=== PATIENT | male | born 1985 | race Caucasian/White ===

== ENCOUNTER 2021-01-23 08:54 | Emergency (ER) | payer BC ==
[2021-01-23] MEDS ORDERED: Dexamethasone 10 MG/ML SDV IVPUSH ONE (09:35)
[2021-01-23] MEDS ORDERED: Benzocaine 20% Topical Spray UD MUCMEM ONE ×3 (09:36→10:35)
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
[2021-01-23] MEDS ORDERED: Clindamycin Phosphate in D5W 600 MG in Premix Bag 1 BAG IV SCH ×2 (10:00)
[2021-01-23 10:52] LABS: BLOOD UREA NITROGEN,BUN 13 mg/dL (7.0-18.0); CARBON DIOXIDE,CO2 28.2 mmol/L (21.0-32.0); CHLORIDE,CL 98 mmol/L (98-107); GLUCOSE RANDOM 107 mg/dL (74-106); POTASSIUM,K 3.6 mmol/L (3.5-5.1); SODIUM,NA 138 mmol/L (136-148)
[2021-01-23] MEDS ORDERED: Iopamidol 755 MG/ML 500 ML Multipack Bottle IVPUSH STA (11:52)
--- NOTE | 2021-01-23 12:48 | CT ---
Indication: Possible left tonsillar abscess. Technique: CT of the paranasal sinuses after administration of 75 cc Isovue 370 contrast. Coronal and sagittal reformatted images. Bone and soft tissue algorithms. Comparison: None. Findings: There is a 4 x 2.9 x 2.7 cm (CC by AP by TR) left peritonsillar abscess results in moderate narrowing of the oropharyngeal airway. Enhancement of the bilateral palatine tonsils consistent with acute tonsillitis. Multiple enlarged left level II-IV lymph nodes likely reactive in etiology. The orbits are unremarkable. Intracranial contents are unremarkable. The frontal sinuses are clear. Minimal mucosal thickening in left anterior ethmoid air cells. Right ethmoid air cells are clear. Sphenoid sinuses are clear. The maxillary sinuses are clear. The mastoid air cells and middle ear cavities are clear. The calvarium is intact. Findings called to Dr. Wagner at 12:45 pm. Impression: 1. There is a 4 x 2.9 x 2.7 cm (CC by AP by TR) left peritonsillar abscess results in moderate narrowing of the oropharyngeal airway. 2. Enhancement and enlargement bilateral palatine tonsils consistent with acute tonsillitis. 3. Multiple enlarged left level II-IV lymph nodes likely reactive in etiology. 4. Please note that all CT scans at this facility use dose modulation, iterative reconstruction, and/or weight-based dosing when appropriate to reduce radiation dose to as low as reasonably achievable. Dictated by James Parsons MD @ Jan 23 2021 12:39PM Signed by Dr. James Parsons @ Jan 23 2021 12:46PM
== END 2021-01-23 13:43 | disposition home or self-care (01) ==
LOC: MW.ED 08:54
DX: J36 Peritonsillar abscess (principal); Z72.0 Tobacco use
CPT/HCPCS: 36415; 42700; 70487; 80048; 85025; 96365; 96375; 99283; A9270; J1100; J3490; Q9967